=== PATIENT | male | born 2000 | race Caucasian/White ===

== ENCOUNTER 2024-09-26 01:01 | Emergency (ER) | payer SELFPAY ==
[~2024-09-26] VITALS: Ht 180.3 cm; Wt 87.0 kg
[2024-09-26 01:14] VITALS: BP 154/95; PULSE 96; RESP 14
== END 2024-09-26 01:35 | disposition home or self-care (01) ==
LOC: ER 01:01
DX: T50.7X1A Poisoning by analeptics and opioid receptor antagonists, accidental (unintentional), initial encounter (principal); Z00.00 Encounter for general adult medical examination without abnormal findings; Y92.89 Other specified places as the place of occurrence of the external cause
CPT/HCPCS: 99283